=== PATIENT | female | born 1970 | race Caucasian/White ===

== ENCOUNTER 2021-03-20 10:45 | Outpatient (CLI) | payer BC | END 2021-03-20 10:46 | disposition home or self-care (01) | LOC: CSHMAMMO 10:45 | PROVIDERS: ATTEND Student in an Organized Health Care Education/Training Program | DX: Z12.31 Encounter for screening mammogram for malignant neoplasm of breast (principal); Z98.82 Breast implant status | CPT/HCPCS: 77063; 77067 ==

== ENCOUNTER 2022-03-15 10:06 | Outpatient (CLI) | payer OTHER | END 2022-03-15 10:07 | disposition home or self-care (01) | LOC: CSHMAMMO 10:06 | PROVIDERS: ATTEND Family Medicine | DX: Z13.820 Encounter for screening for osteoporosis (principal); N95.1 Menopausal and female climacteric states | CPT/HCPCS: 77080 ==

== ENCOUNTER 2022-04-20 00:20 | Emergency (ER) | payer OTHER ==
[2022-04-20] MEDS ORDERED: Loperamide HCl 2 MG CAP ONE (00:54)
[2022-04-20] MEDS ORDERED: Ondansetron PF 4 MG/2 ML Vial ONE (00:54)
[2022-04-20] MEDS ORDERED: Dicyclomine 20 MG TAB ONE (00:57)
[2022-04-20 01:20] LABS: #Basophils 0.1 10x3/uL (0.0-0.2); #Monocytes 0.9 10x3/uL (0.0-1.1); #Neutrophils 9.5 10x3/uL (1.5-8.4); %Basophils 0.5 % (0.0-2.0); %Eosinophils 0.4 % (0.0-6.0); %Lymphocytes 2.3 % (18.0-47.0); %Monocytes 8.6 % (0.0-10.0); Hemoglobin 15.3 g/dL (12.0-15.5); Mean Corpuscular HGB CONC 34.1 g/dL (32.0-36.0); Mean Corpuscular Hemoglobin 30.4 pg (27.0-33.0); Mean Corpuscular Volume 89.1 fl (81.6-98.3); Platelet Count 227 10x3/uL (150-450); RBC Distribution Width 13.4 % (11.5-14.5); Red Blood Cell (RBC) Count 5.04 10x6/uL (3.90-5.03); White Blood Cell (WBC) Count 10.8 10x3/uL (3.5-10.5)
[2022-04-20 01:27] LABS: BHCG - Serum Negative (NEGATIVE); Pregs Control Background? CLEAR/WHITE (CLR/WHITE); Pregs Control Bar Appear? YES (CONTROL BAR)
[2022-04-20 01:29] LABS: ALT (SGPT) 24 U/L (8-55); AST (SGOT) 24 U/L (5-34); Albumin 4.5 g/dL (3.5-5.0); Alkaline Phosphatase 71 U/L (40-110); Anion Gap 19 mmol/L (10-20); BUN (Urea Nitrogen) 20 mg/dL (9.8-20.1); Bilirubin, Total 0.7 mg/dL (0.2-1.2); Calc. Creatinine Clearance 0 mL/min (70-130); Calcium 9.9 mg/dL (7.8-10.44); Carbon Dioxide 23 mmol/L (22-29); Chloride 105 mmol/L (98-107); Estimated GFR 64; Globulin 2.5 g/dL (2.4-3.5); Glucose 166 mg/dL (70-105); Potassium 4.5 mmol/L (3.5-5.1); Sodium 142 mmol/L (136-145)
[2022-04-20 01:37] LABS: SARS-CoV-2 NAA Rapid Test Not Detected (NotDetected)
[2022-04-20 02:11] LABS: Bilirubin Neg (Negative); Blood, Urine Negative (Negative); Clarity Clear (Clear); Glucose, Urine (Dipstick) Normal (Negative); Ketone, Urine 5 mg/dL (Negative); Leukocyte 25 (Negative); Nitrite Negative (Negative); Protein, Urine (Dipstick) 15 mg/dl (Neg-Trace); Specific Gravity, Urine 1.015 (1.005-1.030); Urobilinogen Normal mg/dL (Less than 2)
[2022-04-20] MEDS ORDERED: Ketorolac Tromethamine 30 MG/ML VIAL ONE (02:19)
[2022-04-20 02:27] LABS: RBC/HPF 0-3 HPF (0-3); Squamous Epithelial 0-3 HPF (0-3)
[2022-04-20 02:28] LABS: Bacteria/HPF 1+ HPF (None Seen)
[2022-04-20] MEDS ORDERED: Ciprofloxacin 500 MG TAB ONE (04:30)
[2022-04-20] MEDS ORDERED: Iopamidol 300 61% 100 ML VIAL FS ONE (11:52)
== END 2022-04-20 06:00 | disposition home or self-care (01) ==
LOC: CSHERS 00:20
DX: K52.9 Noninfective gastroenteritis and colitis, unspecified (principal); N30.01 Acute cystitis with hematuria; Z20.822 Contact with and (suspected) exposure to COVID-19; E03.9 Hypothyroidism, unspecified
CPT/HCPCS: 36415; 74177; 80053; 81003; 81015; 84703; 85025; 87077; 87086; 96361; 96374; 96375; J1885; J2405; Q9967

== ENCOUNTER 2022-05-21 11:30 | Outpatient (CLI) | payer OTHER | END 2022-05-21 11:31 | disposition home or self-care (01) | LOC: CSHMAMMO 11:30 | PROVIDERS: ATTEND Student in an Organized Health Care Education/Training Program | DX: Z12.31 Encounter for screening mammogram for malignant neoplasm of breast (principal); Z98.890 Other specified postprocedural states | CPT/HCPCS: 77063; 77067 ==

== ENCOUNTER 2022-05-25 08:01 | Outpatient (CLI) | payer OTHER | END 2022-05-25 08:02 | disposition home or self-care (01) | LOC: CSHMAMMO 08:01 | PROVIDERS: ATTEND Student in an Organized Health Care Education/Training Program | DX: R92.8 Other abnormal and inconclusive findings on diagnostic imaging of breast (principal); Z90.13 Acquired absence of bilateral breasts and nipples; Z91.89 Other specified personal risk factors, not elsewhere classified | CPT/HCPCS: G0279 ==

== ENCOUNTER 2022-07-29 08:46 | Outpatient (CLI) | payer OTHER | END 2022-07-29 08:47 | disposition home or self-care (01) | LOC: CSHCT 08:46 | PROVIDERS: ATTEND Neurological Surgery | DX: N28.89 Other specified disorders of kidney and ureter (principal) | CPT/HCPCS: 74178 ==

== ENCOUNTER 2023-05-04 13:07 | Outpatient (CLI) | payer OTHER | END 2023-05-04 13:08 | disposition home or self-care (01) | LOC: CSHULT 13:07 | PROVIDERS: ATTEND Nurse Practitioner Family | DX: R22.2 Localized swelling, mass and lump, trunk (principal) | CPT/HCPCS: 76999 ==

== ENCOUNTER 2023-05-23 11:08 | Outpatient (CLI) | payer OTHER | END 2023-05-23 11:09 | disposition home or self-care (01) | LOC: CSHMAMMO 11:08 | PROVIDERS: ATTEND Nurse Practitioner Family | DX: Z12.31 Encounter for screening mammogram for malignant neoplasm of breast (principal); Z91.89 Other specified personal risk factors, not elsewhere classified; Z98.890 Other specified postprocedural states | CPT/HCPCS: 77063; 77067 ==

== ENCOUNTER 2024-09-24 08:57 | Outpatient (CLI) | payer OTHER | END 2024-09-24 08:58 | disposition home or self-care (01) | LOC: CSHSLEEP 08:57 | PROVIDERS: ATTEND Family Medicine | DX: G47.33 Obstructive sleep apnea (adult) (pediatric) (principal); G25.81 Restless legs syndrome; R53.83 Other fatigue; F32.A Depression, unspecified; F41.9 Anxiety disorder, unspecified; K21.9 Gastro-esophageal reflux disease without esophagitis; R06.83 Snoring | CPT/HCPCS: 95810 ==

== ENCOUNTER 2025-01-02 13:57 | Outpatient (CLI) | payer OTHER | END 2025-01-02 13:58 | disposition home or self-care (01) | LOC: CSHMAMMO 13:57 | PROVIDERS: ATTEND Family Medicine | DX: Z12.31 Encounter for screening mammogram for malignant neoplasm of breast (principal); Z91.89 Other specified personal risk factors, not elsewhere classified; Z98.890 Other specified postprocedural states | CPT/HCPCS: 77063; 77067 ==

== ENCOUNTER 2025-01-16 12:07 | Outpatient (CLI) | payer OTHER | END 2025-01-16 12:08 | disposition home or self-care (01) | LOC: CSHULT 12:07 | PROVIDERS: ATTEND Family Medicine | DX: R80.9 Proteinuria, unspecified (principal); N28.89 Other specified disorders of kidney and ureter; D17.71 Benign lipomatous neoplasm of kidney | CPT/HCPCS: 76770 ==